=== PATIENT | female | born 1945 | race Hispanic/Latino ===

== ENCOUNTER 2018-06-30 10:59 | Emergency (ER) | payer MEDICARE, BC ==
[2018-06-30] MEDS ORDERED: TDAP Vaccine 0.5 mL Syr IM ONE (12:19)
[2018-06-30 12:23] VITALS: RESP 18; TEMP 97.6
[2018-06-30 12:45] VITALS: BP 155/97; PULSE 102; O2SAT 99
--- NOTE | 2018-06-30 12:59 | ED PDOC ---
Arrival/HPI - General Time Seen by Provider: 06/30/18 11:38 Historian: Patient - History of Present Illness Narrative History of Present Illness (Text): 06/30/18 11:52 72 year old female, whose past medical history includes COPD, chronic knee and back pain, presents to the emergency department complaining of head injury s/p fall last night. Patient states she was walking to the bathroom when she fell and hit her head, and lacerated her head. Patient states there was a lot of blood on the floor. She notes that she normally walks at baseline with a walker, but during the fall she was only using a cane. She denies fevers, chills, headache, dizziness, chest pain, shortness of breath, dyspnea on exertion, cough, abdominal pain, nausea, vomiting, diarrhea, back pain, neck pain, or any other complaint. Time/Duration: 24 hours Symptom Onset: Gradual Symptom Course: Unchanged Past Medical History - Provider Review Nursing Documentation Reviewed: Yes - Infectious Disease Hx of Infectious Diseases: None - Cardiac Hx Cardiac Disorders: No - Pulmonary Hx Respiratory Disorders: Yes Hx Chronic Obstructive Pulmonary Disease (COPD): Yes - Neurological Hx Neurological Disorder: Yes Other/Comment: hydrocephalus - HEENT Hx HEENT Disorder: Yes Hx Glaucoma: Yes - Renal Hx Renal Disorder: No - Endocrine/Metabolic Hx Endocrine Disorders: No - Hematological/Oncological Hx Blood Disorders: No - Integumentary Hx Dermatological Disorder: No - Musculoskeletal/Rheumatological Hx Musculoskeletal Disorders: No - Gastrointestinal Hx Gastrointestinal Disorders: No - Genitourinary/Gynecological Hx Genitourinary Disorders: Yes Other/Comment: overactive bladder/urinary frequency - Psychiatric Hx Psychophysiologic Disorder: No Hx Substance Use: No - Past Surgical History Past Surgical History: No Previous - Surgical History Hx Section: Yes - Anesthesia Hx Anesthesia: Yes Hx Anesthesia Reactions: No Hx Malignant Hyperthermia: No - Suicidal Assessment Feels Threatened In Home Enviroment: No Family/Social History - Physician Review Nursing Documentation Reviewed: Yes Family/Social History: No Known Family HX Smoking Status: Former Smoker Hx Alcohol Use: No Hx Substance Use: No Hx Substance Use Treatment: No Allergies/Home Meds Allergies/Adverse Reactions: Allergies No Known Allergies Allergy (Verified 06/20/16 16:51) Home Medications: Home Meds Medication Instructions Recorded Confirmed Tiotropium [Spiriva] 18 mcg IH DAILY 12/27/12 07/13/14 Budesonide/Formoterol Fumarate 1 aer IH BID 04/21/14 07/13/14 [Symbicort] Latanoprost 0.005% Opht [Xalatan 1 drop OU HS 07/13/14 07/13/14 Opht] acetaZOLAMIDE [Diamox Sequels 500 500 mg PO DAILY 07/13/14 07/13/14 mg SR Cap] Review of Systems - Physician Review All systems were reviewed & negative as marked: Yes - Review of Systems Constitutional: absent: Fevers Respiratory: absent: SOB, Cough Cardiovascular: absent: Chest Pain Gastrointestinal: Constipation. absent: Abdominal Pain, Diarrhea, Nausea, Vomiting Musculoskeletal: Back Pain. absent: Neck Pain Skin: Laceration (2cm laceration on head) Neurological: absent: Headache, Dizziness Physical Exam Vital Signs Reviewed: Yes Vital Signs Temp Pulse Resp BP Pulse Ox 06/30/18 11:34 97.6 F 98 H 18 154/90 H 98 Temperature: Afebrile Blood Pressure: Hypertensive Pulse: Tachycardic Respiratory Rate: Normal Appearance: Positive for: Well-Appearing, Non-Toxic, Comfortable Pain Distress: None Mental Status: Positive for: Alert and Oriented X 3 - Systems Exam Head: Present: Atraumatic, Normocephalic, Laceration (2cm laceration) Pupils: Present: PERRL Extroacular Muscles: Present: EOMI Conjunctiva: Present: Normal Mouth: Present: Moist Mucous Membranes Neck: Present: Normal Range of Motion Respiratory/Chest: Present: Clear to Auscultation, Good Air Exchange. No: Respiratory Distress, Accessory Muscle Use Cardiovascular: Present: Regular Rate and Rhythm, Normal S1, S2. No: Murmurs Abdomen: No: Tenderness, Distention, Peritoneal Signs Back: Present: Normal Inspection Upper Extremity: Present: Normal Inspection. No: Cyanosis, Edema Lower Extremity: Present: Normal Inspection. No: Edema Neurological: Present: GCS=15, CN II-XII Intact, Speech Normal Skin: Present: Warm, Dry, Normal Color. No: Rashes Psychiatric: Present: Alert, Oriented x 3, Normal Insight, Normal Concentration Medical Decision Making ED Course and Treatment: 06/30/18 11:50 Impression: 72 year old female who presents to the emergency department complaining of head injury s/p fall. Plan: -- irrigation -- braeden -- Reassess and disposition Prior Visits: Notes and results from previous visits were reviewed. Progress Notes: - Procedure PROCEDURE NOTE (Text): 06/30/18 12:03 PROCEDURE: LACERATION REPAIR Performed by the emergency provider Location: mid parietal Length: 3 cm Description: clean wound edges,no foreign bodies Distal CMS: Normal. No deficits. Neurovascularly intact. Preparation: The wound was cleaned with sterile water. The area was prepped and draped in the usual sterile fashion. Exploration: The wound was explored and no foreign bodies were found. Procedure: The wound was closed with 6 braeden. There was good approximation. In total, 6 were used. Bactracin was applied topically. Post-Procedure: Good closure and hemostasis. The patient tolerated the procedure well and there were no complications. CSM remains intact. Post procedure dressing applied. - Scribe Statement The provider has reviewed the documentation as recorded by the Scribe Barbara Maciel Provider Scribe Attestation: All medical record entries made by the Scribe were at my direction and personally dictated by me. I have reviewed the chart and agree that the record accurately reflects my personal performance of the history, physical exam, medical decision making, and the department course for this patient. I have also personally directed, reviewed, and agree with the discharge instructions and disposition. Disposition/Present on Arrival - Present on Arrival History of DVT/PE: No History of Uncontrolled Diabetes: No Urinary Catheter: No History Surgical Site Infection Following: None - Disposition Diagnosis: Scalp laceration Disposition: HOME/ ROUTINE Condition: GOOD Discharge Instructions (ExitCare): Wound Care (DC)
[2018-06-30 18:17] VITALS: BMI 23.8
== END 2018-06-30 18:17 | disposition home or self-care (01) ==
LOC: ED 10:59
DX: S01.01XA Laceration without foreign body of scalp, initial encounter (principal); W18.30XA Fall on same level, unspecified, initial encounter; Y93.01 Activity, walking, marching and hiking; J44.9 Chronic obstructive pulmonary disease, unspecified

== ENCOUNTER 2018-07-06 15:12 | Emergency (ER) | payer MEDICARE, BC ==
[2018-07-06 15:20] VITALS: BMI 25.0
[2018-07-06 15:22] VITALS: RESP 18; O2SAT 99
[2018-07-06] MEDS ORDERED: Lidocaine 5% Patch TD STA ×2 (15:36→16:47)
--- NOTE | 2018-07-06 15:43 | ED PDOC ---
Arrival/HPI - History of Present Illness Time/Duration: Prior to Arrival Symptom Onset: Sudden Quality: Aching Severity Level: Severe Context: Walking <Ajith Leon - Last Filed: 07/06/18 17:56> - General Historian: Patient - History of Present Illness Narrative History of Present Illness (Text): 07/06/18 18:47 73 year old female, whose past medical history includes osteoarthritis, presents to the emergency department complaining of left sided hip pain for 1 day. Patient states she saw her PMD today who told her to put ice on it, she went home and called the ems. Patient said it was sever in nature and localized to the left side of her hip and doesn't radiate. Of note, patient fell 1 week ago was here at [facility] [place]. Patient denies numbness, tingling, bowel and urine incontinents, weakness, or any other complaint. <James Mcintosh - Last Filed: 07/06/18 18:51> - General Chief Complaint: Lower Extremity Problem/Injury Time Seen by Provider: 07/06/18 15:17 Past Medical History - Provider Review Nursing Documentation Reviewed: Yes - Infectious Disease Hx of Infectious Diseases: None - Cardiac Hx Cardiac Disorders: No - Pulmonary Hx Respiratory Disorders: Yes Hx Chronic Obstructive Pulmonary Disease (COPD): Yes - Neurological Hx Neurological Disorder: Yes Other/Comment: hydrocephalus - HEENT Hx HEENT Disorder: Yes Hx Glaucoma: Yes - Renal Hx Renal Disorder: No - Endocrine/Metabolic Hx Endocrine Disorders: No - Hematological/Oncological Hx Blood Disorders: No - Integumentary Hx Dermatological Disorder: No - Musculoskeletal/Rheumatological Hx Musculoskeletal Disorders: No - Gastrointestinal Hx Gastrointestinal Disorders: No - Genitourinary/Gynecological Hx Genitourinary Disorders: Yes Other/Comment: overactive bladder/urinary frequency - Psychiatric Hx Psychophysiologic Disorder: No Hx Substance Use: No - Past Surgical History Past Surgical History: No Previous - Surgical History Hx Section: Yes - Anesthesia Hx Anesthesia: Yes Hx Anesthesia Reactions: No Hx Malignant Hyperthermia: No - Suicidal Assessment Feels Threatened In Home Enviroment: No <Ajith Leon - Last Filed: 07/06/18 17:56> Family/Social History - Physician Review Nursing Documentation Reviewed: Yes Family/Social History: Unknown Family HX Smoking Status: Former Smoker Hx Alcohol Use: No Hx Substance Use: No Hx Substance Use Treatment: No <Ajith Leon - Last Filed: 07/06/18 17:56> Allergies/Home Meds <Ajith Leon - Last Filed: 07/06/18 17:56> <James Mcintosh - Last Filed: 07/06/18 18:51> Allergies/Adverse Reactions: Allergies No Known Allergies Allergy (Verified 07/06/18 15:20) Home Medications: Home Meds Medication Instructions Recorded Confirmed Tiotropium [Spiriva] 18 mcg IH DAILY 12/27/12 07/13/14 Budesonide/Formoterol Fumarate 1 aer IH BID 04/21/14 07/13/14 [Symbicort] Latanoprost 0.005% Opht [Xalatan 1 drop OU HS 07/13/14 07/13/14 Opht] acetaZOLAMIDE [Diamox Sequels 500 500 mg PO DAILY 07/13/14 07/13/14 mg SR Cap] Review of Systems - Physician Review All systems were reviewed & negative as marked: Yes - Review of Systems Constitutional: Normal. absent: Fatigue, Fevers Eyes: absent: Vision Changes Respiratory: absent: SOB Cardiovascular: absent: Chest Pain, Syncope Gastrointestinal: absent: Abdominal Pain, Nausea, Vomiting Musculoskeletal: Arthralgias (L hip pain) Neurological: absent: Headache, Dizziness <Ajith Leon - Last Filed: 07/06/18 17:56> Physical Exam Vital Signs Reviewed: Yes Vital Signs Pulse Resp BP Pulse Ox 07/06/18 15:20 66 18 159/90 H 99 Temperature: Afebrile Blood Pressure: Normal Pulse: Regular Respiratory Rate: Normal Appearance: Positive for: Non-Toxic Pain Distress: Mild Mental Status: Positive for: Alert and Oriented X 3 - Systems Exam Head: Present: Atraumatic, Normocephalic Pupils: Present: PERRL Extroacular Muscles: Present: EOMI. No: Gaze Palsy Mouth: Present: Moist Mucous Membranes Respiratory/Chest: Present: Clear to Auscultation, Good Air Exchange Cardiovascular: Present: Regular Rate and Rhythm, Normal S1, S2. No: Murmurs Abdomen: No: Tenderness, Distention, Rebound, McBurney's Point Tender, Rovsing's Sign Present Back: No: Paraspinal Tenderness, Pain with Leg Raise Lower Extremity: Present: Normal Inspection, NORMAL PULSES, Tenderness (L ASIS w/ deep palpation), Neurovascularly Intact, Other (L hip normal passive ROM, neg scour sign, neg plaza) Neurological: Present: CN II-XII Intact Skin: Present: Dry, Normal Color Psychiatric: Present: Alert, Oriented x 3, Normal Insight <Ajith Leon - Last Filed: 07/06/18 17:56> Vital Signs Temp Pulse Resp BP Pulse Ox 07/06/18 18:00 98.4 F 88 18 151/91 H 99 07/06/18 15:20 66 18 159/90 H 99 Blood Pressure: Hypertensive <James Mcintosh - Last Filed: 07/06/18 18:51> Medical Decision Making ED Course and Treatment: 07/06/18 15:45 #L Hip Pain -Xray 4 view L hip and pelvis -TOradol 60 IM - RAD Interpretation Radiology Orders: 07/06/18 15:31 HIP MIN 4V W/ PELVIS LT [RAD] Stat Auto Bench Mechanic: Radiologist - Medication Orders Current Medication Orders: Discontinued Medications Ketorolac Tromethamine (Toradol) 60 mg IM STAT STA Stop: 07/06/18 15:37 Lidocaine (Lidoderm) 1 ea TD STAT STA Stop: 07/06/18 15:37 <Ajith Leon - Last Filed: 07/06/18 17:56> ED Course and Treatment: 07/06/18 18:50 Patient Seen with Resident: In agreement with resident note which contains more details about the patient. Patient seen and evaluated with resident. Came up with plan and treatment together. Impression: 73 year old female who presents to the emergency department complaining of left sided hip pain. - RAD Interpretation Radiology Orders: 07/06/18 15:31 HIP MIN 4V W/ PELVIS LT [RAD] Stat - Medication Orders Current Medication Orders: Discontinued Medications Diazepam (Valium) 5 mg PO ONCE ONE; Protocol Stop: 07/06/18 16:48 Last Admin: 07/06/18 17:31 Dose: 5 mg Ketorolac Tromethamine (Toradol) 60 mg IM STAT STA Stop: 07/06/18 15:37 Last Admin: 07/06/18 16:32 Dose: 60 mg MAR Pain Assessment Document 07/06/18 16:32 SS (Rec: 07/06/18 16:32 [id number] Pain Reassessment Is this a pain reassessment? No Sleep Is patient sleeping during reassessment? No Presence of Pain Presence of Pain Yes IM Administration Charges Document 07/06/18 16:32 SS (Rec: 07/06/18 16:32 SS [id number]) Charges for Administration # of IM Administrations 1 Lidocaine (Lidoderm) 1 ea TD STAT STA Stop: 07/06/18 15:37 Last Admin: 07/06/18 16:28 Dose: 1 ea MAR Transdermal Patch Site Document 07/06/18 16:28 SS (Rec: 07/06/18 16:31 SS [id number]) Transdermal Patch Site Transdermal Patch Site Left Hip Lidocaine (Lidoderm) 1 ea TD STAT STA Stop: 07/06/18 16:48 Last Admin: 07/06/18 17:31 Dose: 1 ea MAR Transdermal Patch Site Document 07/06/18 17:31 OCS (Rec: 07/06/18 17:32 [facility]CS [facility]) Transdermal Patch Site Transdermal Patch Site Left Hip <James Mcintosh - Last Filed: 07/06/18 18:51> - Scribe Statement The provider has reviewed the documentation as recorded by the Ernestoibhiral Maciel Provider Scribe Attestation: All medical record entries made by the Scribe were at my direction and personally dictated by me. I have reviewed the chart and agree that the record accurately reflects my personal performance of the history, physical exam, medical decision making, and the department course for this patient. I have also personally directed, reviewed, and agree with the discharge instructions and disposition. <James Mcintosh - Last Filed: 07/06/18 18:51> Disposition/Present on Arrival - Present on Arrival Any Indicators Present on Arrival: No History of DVT/PE: No History of Uncontrolled Diabetes: No Urinary Catheter: No History of Decub. Ulcer: No History Surgical Site Infection Following: None - Disposition Have Diagnosis and Disposition been Completed?: Yes Disposition Time: 17:57 Patient Plan: Discharge <Ajith Leon - Last Filed: 07/06/18 17:56> <James Mcintosh - Last Filed: 07/06/18 18:51> - Disposition Diagnosis: Osteoarthritis Disposition: HOME/ ROUTINE Patient Problems: Current Active Problems Problem Status Onset Osteoarthritis Acute Condition: GOOD Prescriptions: Cyclobenzaprine [Flexeril] 5 mg PO BID #4 tab Meloxicam [Mobic] 15 mg PO BID #4 tab Referrals: Elise Walden Ae, APN [Primary Care Provider] - Follow up with primary Davis Hodge DO [Staff Provider] - Follow up with primary Srinivasan Vasquez MD [Staff Provider] - Follow up with primary Forms: [employer] (Portuguese)
--- NOTE | 2018-07-06 16:40 | RAD ---
PROCEDURE: Left Hip X-ray Radiographs. HISTORY: pain on ASIS COMPARISON: None. FINDINGS: BONES: There is diffuse bone demineralization. There is no acute displaced fracture or bone destruction. Bone alignment is normal. JOINTS: The joint spaces are preserved. SOFT TISSUES: Normal. OTHER FINDINGS: None. IMPRESSION: No acute displaced fracture or dislocation. Please note occult fractures cannot be excluded on plain radiographs. If there is a persistent clinical concern, an MRI of the hip may be performed for further evaluation.
[2018-07-06 18:01] VITALS: BP 151/91; PULSE 88; TEMP 98.4
== END 2018-07-06 19:37 | disposition home or self-care (01) ==
LOC: ED 15:12
DX: M19.90 Unspecified osteoarthritis, unspecified site (principal)
CPT/HCPCS: 73503; 96372; 99283; J1885